=== PATIENT | female | born 1995 | race Caucasian/White ===

== ENCOUNTER 2017-05-04 11:41 | Day surgery (SDC) | payer MEDICAID ==
[~2017-05-04] VITALS: Ht 165.1 cm; Wt 93.7 kg
[2017-05-04] VITALS (14 sets, daily range): BP systolic 114–142; BP diastolic 61–81; PULSE 73–106; RESP 13–26; Ht 165.1 cm; Wt 93.7 kg
[~2017-05-04 11:41] MED LIST: PROPOFOL 200 MG INJ ONE
[2017-05-04] MEDS ORDERED: BUPIVACAINE 0.5%/EPI (SDV) 30 ML INJ ONE (12:46)
--- NOTE | 2017-05-04 13:20 | HPN ---
Date/Time of Note Date/Time of Note DATE: 05/04/17 TIME: 13:20 Interval H&P Admission Note Pt. seen H&P reviewed: No system changes JOSÉ MANUEL NATHAN MD May 04, 2017 13:20
[2017-05-04] MEDS ORDERED: FENTAnyl 50 MCG/ML VIAL ONE (13:25)
[2017-05-04] MEDS ORDERED: MIDAZOLAM 1 MG/ML 2 ML INJ ONE ×2 (13:25→13:39)
[2017-05-04] MEDS ORDERED: PROPOFOL 20 ML ONE (13:35)
[2017-05-04] MEDS ORDERED: LIDOCAINE 2% (SDV) 5 ML INJ ONE (13:35)
[2017-05-04] MEDS ORDERED: ONDANSETRON 4 MG INJ ONE (13:36)
[2017-05-04] MEDS ORDERED: CEFAZOLIN 1 GM INJ ONE (13:36)
[2017-05-04] MEDS ORDERED: DEXAMETHASONE 4 MG/ML 1 ML INJ ONE (13:36)
[2017-05-04] MEDS ORDERED: LIDOCAINE 1% (STERILE-PAK) 30 ML INJ ONE (13:49)
[2017-05-04] MEDS ORDERED: LACTATED RINGER'S 1,000 ML IV SCH (14:10)
--- NOTE | 2017-05-04 14:23 | OPR ---
Date/Time of Note Date/Time of Note DATE: 05/04/17 TIME: 14:22 Operative Report Procedure Date: May 04, 2017 Preoperative Diagnosis Right lower quadrant abdominal wall painful lesion BMI 34 Postoperative Diagnosis Right lower quadrant abdominal wall painful lesion, possible suture granuloma BMI 34 Operation/Procedure Performed 1. Excision of right lower quadrant abdominal wall lesion, 2.5 cm 2. Local anesthetic injection, [id number] Surgeon Mat Page MD Conference Organizer None Anesthesia Type: MAC (And local) Anesthesiologist: RAJESH GARAY MD Estimated Blood Loss: minimal Transfusion none Specimen Lesion Grafts/Implants none Tubes/Drains None Complications none Pt Condition Post Procedure: stable Disposition: PACU Indications 22-year-old female with history of 2 years ago with a lesion at the lateral aspect of the incision that is painful. She is here for excision. There is no evidence alternatives were fully explained to her and her they agree to proceed. Risks include but are not limited to bleeding, infection, abscess, seroma, leak , damage to intestines or any intra-abdominal/intrapelvic structures, hernia formation, chronic pain, need for re-operations or further surgeries, [place], stroke , PE, DVT, pneumonia, organ failures, or even . Procedure Description Patient was brought in, placed supine on the operating table, SCDs were placed, pressure points were well-padded, and after induction of anesthesia she was prepped and draped in usual sterile fashion. Preoperative antibiotics administered. Incision was made through her previous incision on the right lower abdominal wall and extended through the subcutaneous tissue to the palpable lesion. This lesion was excised circumferentially off of the fascia without violating the fascia. There was complete hemostasis. Wound was thoroughly irrigated and closed in multiple layers with 2-0 Vicryl subcutaneous, followed by 2-0 Vicryl dermal, followed by 4-0 Monocryl subcuticular. Dermabond was applied. Wound was completely hemostatic. Patient was recovered and taken back to PACU in stable condition and all counts were correct at the end of the operation 2. Copies To: CC: JASPAL ENGLISH MD, SAMUEL MD May 04, 2017 14:23
--- NOTE | 2017-05-04 14:23 | OPR ---
Date/Time of Note Date/Time of Note DATE: 05/04/17 TIME: 14:22 Operative Report Procedure Date: May 04, 2017 Preoperative Diagnosis Right lower quadrant abdominal wall painful lesion BMI 34 Postoperative Diagnosis Right lower quadrant abdominal wall painful lesion, possible suture granuloma BMI 34 Operation/Procedure Performed 1. Excision of right lower quadrant abdominal wall lesion, 2.5 cm 2. Local anesthetic injection, [id number] Surgeon Mat Page MD Psychiatry Instructor None Anesthesia Type: MAC (And local) Anesthesiologist: RAJESH GARAY MD Estimated Blood Loss: minimal Transfusion none Specimen Lesion Grafts/Implants none Tubes/Drains None Complications none Pt Condition Post Procedure: stable Disposition: PACU Indications 22-year-old female with history of 2 years ago with a lesion at the lateral aspect of the incision that is painful. She is here for excision. There is no evidence alternatives were fully explained to her and her they agree to proceed. Risks include but are not limited to bleeding, infection, abscess, seroma, leak , damage to intestines or any intra-abdominal/intrapelvic structures, hernia formation, chronic pain, need for re-operations or further surgeries, [place], stroke , PE, DVT, pneumonia, organ failures, or even . Procedure Description Patient was brought in, placed supine on the operating table, SCDs were placed, pressure points were well-padded, and after induction of anesthesia she was prepped and draped in usual sterile fashion. Preoperative antibiotics administered. Incision was made through her previous incision on the right lower abdominal wall and extended through the subcutaneous tissue to the palpable lesion. This lesion was excised circumferentially off of the fascia without violating the fascia. There was complete hemostasis. Wound was thoroughly irrigated and closed in multiple layers with 2-0 Vicryl subcutaneous, followed by 2-0 Vicryl dermal, followed by 4-0 Monocryl subcuticular. Dermabond was applied. Wound was completely hemostatic. Patient was recovered and taken back to PACU in stable condition and all counts were correct at the end of the operation 2. Copies To: CC: JASPAL ENGLISH MD, SAMUEL MD May 04, 2017 14:23
--- NOTE | 2017-05-04 14:23 | OPR ---
Date/Time of Note Date/Time of Note DATE: 05/04/17 TIME: 14:22 Operative Report Procedure Date: May 04, 2017 Preoperative Diagnosis Right lower quadrant abdominal wall painful lesion BMI 34 Postoperative Diagnosis Right lower quadrant abdominal wall painful lesion, possible suture granuloma BMI 34 Operation/Procedure Performed 1. Excision of right lower quadrant abdominal wall lesion, 2.5 cm 2. Local anesthetic injection, [id number] Surgeon Mat Page MD Load Dispatcher Local None Anesthesia Type: MAC (And local) Anesthesiologist: RAJESH GARAY MD Estimated Blood Loss: minimal Transfusion none Specimen Lesion Grafts/Implants none Tubes/Drains None Complications none Pt Condition Post Procedure: stable Disposition: PACU Indications 22-year-old female with history of 2 years ago with a lesion at the lateral aspect of the incision that is painful. She is here for excision. There is no evidence alternatives were fully explained to her and her they agree to proceed. Risks include but are not limited to bleeding, infection, abscess, seroma, leak , damage to intestines or any intra-abdominal/intrapelvic structures, hernia formation, chronic pain, need for re-operations or further surgeries, [place], stroke , PE, DVT, pneumonia, organ failures, or even . Procedure Description Patient was brought in, placed supine on the operating table, SCDs were placed, pressure points were well-padded, and after induction of anesthesia she was prepped and draped in usual sterile fashion. Preoperative antibiotics administered. Incision was made through her previous incision on the right lower abdominal wall and extended through the subcutaneous tissue to the palpable lesion. This lesion was excised circumferentially off of the fascia without violating the fascia. There was complete hemostasis. Wound was thoroughly irrigated and closed in multiple layers with 2-0 Vicryl subcutaneous, followed by 2-0 Vicryl dermal, followed by 4-0 Monocryl subcuticular. Dermabond was applied. Wound was completely hemostatic. Patient was recovered and taken back to PACU in stable condition and all counts were correct at the end of the operation 2. Copies To: CC: JASPAL ENGLISH MD, SAMUEL MD May 04, 2017 14:23
[2017-05-04] MEDS ORDERED: ACETAMINOPHEN 500 MG TAB PO PRN (14:30)
[2017-05-04] MEDS ORDERED: HYDROCODONE/APAP (5/325) TAB PO PRN (14:30)
[2017-05-04] MEDS ORDERED: IBUPROFEN 600 MG TAB PO PRN (14:30)
[2017-05-04] MEDS ORDERED: ONDANSETRON 4 MG INJ IV PRN (14:30)
[2017-05-04] MEDS ORDERED: morphine 10 MG INJ IM PRN (14:30)
== END 2017-05-04 16:23 | disposition home or self-care (01) ==
LOC: SDS 11:41
PROVIDERS: ATTEND Surgery
DX: N80.3 Endometriosis of pelvic peritoneum (principal); D23.5 Other benign neoplasm of skin of trunk; E66.01 Morbid (severe) obesity due to excess calories; Z68.34 Body mass index [BMI] 34.0-34.9, adult
CPT/HCPCS: 11403; 12031; 88305; J0690; J2250; J3010; Z7512; Z7610; J1100; J2405